=== PATIENT | male | born 1975 | race Caucasian/White ===

== ENCOUNTER 2017-11-17 10:31 | Day surgery (SDC) | payer BC ==
[2017-11-17] VITALS (7 sets, daily range): BP systolic 135–151; BP diastolic 81–96; PULSE 71–93; TEMP 97.7–98
[~2017-11-17] VITALS: Ht 188 cm; Wt 109.5 kg
[2017-11-17] MEDS ORDERED: FLONASEALLERGY NS (11:02)
[2017-11-17] MEDS ORDERED: NORCO 325 MG-51 TAB PO (15:37)
== END 2017-11-17 16:40 | disposition home or self-care (01) ==
LOC: SDCO 10:31
DX: K40.90 Unilateral inguinal hernia, without obstruction or gangrene, not specified as recurrent (principal); J30.2 Other seasonal allergic rhinitis
CPT/HCPCS: C1781; J0690; J1100; J1885; J2405; J2704; J3010; J7120